=== PATIENT | male | born 1945 | race Hispanic/Latino ===

== ENCOUNTER 2016-10-14 07:39 | Day surgery (SDC) | payer MEDICARE, OTHER ==
[2016-10-05 10:23] VITALS: BMI 41.9
[2016-10-14] MEDS ORDERED: Lactated Ringer's 1,000 ML IV SCH (10:30)
[2016-10-14] MEDS ORDERED: Propofol 10 mg/ml Inj (20 ML) ONE (10:34)
[2016-10-14 11:50] VITALS: PULSE 77
[2016-10-14 14:33] VITALS: BP 131/87; RESP 16; TEMP 98; O2SAT 96
== END 2016-10-14 14:09 | disposition home or self-care (01) ==
LOC: ENDO 07:39
PROVIDERS: ATTEND Internal Medicine Gastroenterology
DX: K31.7 Polyp of stomach and duodenum (principal); D12.2 Benign neoplasm of ascending colon; K57.30 Diverticulosis of large intestine without perforation or abscess without bleeding; K62.1 Rectal polyp; K64.8 Other hemorrhoids; K62.5 Hemorrhage of anus and rectum; Z98.84 Bariatric surgery status
CPT/HCPCS: 43239; 45380; 45390; 88305; 88312; 88342; J2001; J2704; J3010; J7120

== ENCOUNTER 2017-01-30 07:33 | Day surgery (SDC) | payer MEDICARE, OTHER ==
[2017-01-23 10:35] VITALS: BMI 40.3
[2017-01-30 08:25] LABS: BASO # 0.04 K/mm3 (0.0-2.0); BASO % 0.6 % (0.0-3.0); EOS # 0.2 (0.0-0.7); EOS % 2.9 % (1.5-5.0); GRAN # 4.05 (1.4-6.5); GRAN % 56.4 % (50.0-68.0); HEMOGLOBIN 14.6 gm/dL (14.0-18.0); LYMPH # 2.3 (1.2-3.4); LYMPH % 32.2 % (22.0-35.0); MEAN CELL VOLUME 87.2 fL (80.0-105.0); MEAN CORPUSCULAR HEMOGLOBIN 29.6 pg (25.0-35.0); MEAN PLATELET VOLUME 9.8 fl (7.0-11.0); MONO # 0.6 (0.1-0.6); MONO % 7.9 % (1.0-6.0); PLATELET COUNT 238 10^3/uL (120.0-450.0); RBC 4.93 10^6/uL (3.5-6.1); RED CELL DISTRIBUTION WIDTH 13.9 % (11.5-14.5); WHITE BLOOD COUNT 7.2 10^3/ul (4.5-11.0)
[2017-01-30] MEDS ORDERED: Midazolam 2 MG/2 ML VIAL ONE (08:32)
[2017-01-30 08:33] LABS: ALB/GLOB RATIO 1.5 (1.1-1.8); ALBUMIN 4.3 g/dL (3.0-4.8); ALT/SGPT 28 U/L (7-56); AMYLASE 80 U/L (35-125); AST/SGOT 22 U/L (15-59); BLOOD UREA NITROGEN 21 mg/dL (7-21); CALCIUM 9.5 mg/dL (8.4-10.5); GAMMA GLUTAMYL TRANSPEPTIDASE 69 U/L (8-78); GFR AFRICAN-AMERICAN > 60; GFR NON-AFRICAN AMERICAN > 60; LIPASE 275 U/L (23-300)
[2017-01-30] MEDS ORDERED: Propofol 10 mg/ml Inj (20 ML) ONE (08:34)
[2017-01-30 08:35] LABS: INR 0.96 (0.93-1.08); PROTHROMBIN TIME 10.4 Seconds (9.9-11.8)
[2017-01-30] MEDS ORDERED: Lactated Ringer's 1,000 ML IV SCH (09:40)
[2017-01-30 10:38] VITALS: BP 132/79; PULSE 66; RESP 16; TEMP 97.4; O2SAT 96
== END 2017-01-30 11:23 | disposition home or self-care (01) ==
LOC: ENDO 07:33
PROVIDERS: ATTEND Internal Medicine Gastroenterology
DX: D17.5 Benign lipomatous neoplasm of intra-abdominal organs (principal); K29.70 Gastritis, unspecified, without bleeding; I10 Essential (primary) hypertension
CPT/HCPCS: 36415; 43259; 80053; 82150; 82977; 83690; 85025; 85610; 85730; J2001; J2250; J2704; J3010; J7040; J7120

== ENCOUNTER 2018-09-25 07:55 | Outpatient (CLI) | payer MEDICARE, OTHER | END 2018-09-25 07:56 | disposition home or self-care (01) | LOC: RAD 07:55 ==